=== PATIENT | female | born 1945 | race Caucasian/White ===

== ENCOUNTER → 2017-10-05 | Outpatient (CLI) | payer MEDICARE ==
--- NOTE | 2017-10-05 12:46 | KCIC ---
CT head without intravenous contrast History: Fall 3 weeks ago, dizziness, vertigo, unsteady gait. Comparison: None. Technique: Axial images are obtained of the head from the skull base through the vertex without IV contrast. Exposure: One or more of the following individualized dose reduction techniques were utilized for this examination: 1. Automated exposure control 2. Adjustment of the mA and/or kV according to patient size 3. Use of iterative reconstruction technique Findings: The ventricles are appropriate in size, shape, and location for the patient's age. No obvious intracranial mass, mass-effect, midline shift, hemorrhage or obvious acute infarction is identified. Basilar cisterns are patent. Bone windows demonstrate no acute calvarial abnormality. The visualized paranasal sinuses appear clear. Impression: 1. No acute intracranial process. Electronically signed by: Walt Villela MD (10/05/2017 12:43 PM) [facility]
--- NOTE | 2017-10-05 13:17 | KCIC ---
CT cervical spine History: Fall 3 weeks ago, dizziness, vertigo, unsteady gait. Comparison: None. Technique: Noncontrast CT of the cervical spine was performed using helical technique. Axial, sagittal, coronal reconstructions were obtained. Exposure: One or more of the following individualized dose reduction techniques were utilized for this examination: 1. Automated exposure control 2. Adjustment of the mA and/or kV according to patient size 3. Use of iterative reconstruction technique Findings: There is no evidence of acute fracture or acute malalignment involving the cervical spine. No prevertebral soft tissue swelling is identified. C3-4 level demonstrates right greater than left facet and uncovertebral hypertrophy. There is also 2 mm of anterolisthesis at this level. C4-5 level demonstrates left greater than right facet and uncovertebral hypertrophy. There is a central posterior disc protrusion. C5-6 level demonstrates degenerative disc disease with posterior disc osteophyte complex as well as narrowing and irregularity of the disc space. Bilateral facet hypertrophy is seen. There is mild bilateral neural foraminal narrowing. There is at least mild spinal canal narrowing. C6-7 level demonstrates degenerative disc disease with posterior disc osteophyte complex as well as narrowing and irregularity of the disc space. Bilateral facet hypertrophy is seen. There is mild bilateral neural foraminal narrowing. There is at least mild spinal canal narrowing. Impression: 1. No evidence of acute traumatic injury involving the cervical spine. 2. Multilevel degeneration. Electronically signed by: Walt Villela MD (10/05/2017 1:14 PM) [id number]
== END | disposition home or self-care (01) ==
LOC: KCIC CT 10:48
PROVIDERS: ATTEND Nurse Practitioner Occupational Health
DX: M50.322 Other cervical disc degeneration at C5-C6 level (principal); M50.323 Other cervical disc degeneration at C6-C7 level; R42 Dizziness and giddiness
CPT/HCPCS: 70450; 72125

== ENCOUNTER → 2018-02-21 | Outpatient (CLI) | payer MEDICARE ==
[2018-02-21 15:21] LABS: ADD MAN DIFF? NO
[2018-02-21 15:56] LABS: BASO # 0.1 x10^3/uL (0.0-0.2); BASO % 2 % (0-3); EOS # 0.1 x10^3/uL (0.0-0.7); EOS % 2 % (0-3); HEMATOCRIT 37.3 % (36.0-47.0); HEMOGLOBIN 12.5 g/dL (12.0-15.5); LYMPH # 2.5 x10^3/uL (1.0-4.8); LYMPH % 43 % (24-48); MEAN CORPUSCULAR HEMOGLOBIN 30 pg (25-35); MEAN CORPUSCULAR HGB CONC 34 g/dL (31-37); MEAN CORPUSCULAR VOLUME 90 fL (79-100); MONO # 0.7 x10^3/uL (0.0-1.1); MONO % 13 % (0-9); NEUT # 2.3 x10^3uL (1.8-7.7); NEUT % 40 % (31-73); PLATELET COUNT 463 x10^3/uL (140-400); RED BLOOD COUNT 4.15 x10^6/uL (3.50-5.40); RED CELL DISTRIBUTION WIDTH 14.5 % (11.5-14.5); WHITE BLOOD COUNT 5.8 x10^3/uL (4.0-11.0)
[2018-02-21 16:06] LABS: ALBUMIN 3.5 g/dL (3.4-5.0); ALBUMIN/GLOBULIN RATIO 0.8 (1.0-1.7); ALK PHOS 301 U/L (46-116); ALT (SGPT) 20 U/L (14-59); ANION GAP 7 (6-14); AST (SGOT) 22 U/L (15-37); BLOOD UREA NITROGEN 19 mg/dL (7-20); BUN/CREATININE RATIO 21 (6-20); CALCIUM 8.8 mg/dL (8.5-10.1); CARBON DIOXIDE 30 mmol/L (21-32); CHLORIDE 105 mmol/L (98-107); CREATININE 0.9 mg/dL (0.6-1.0); GFR 61.4; GLUCOSE 120 mg/dL (70-99); POTASSIUM 4.2 mmol/L (3.5-5.1); SODIUM 142 mmol/L (136-145); TOTAL BILIRUBIN 0.5 mg/dL (0.2-1.0)
[2018-02-21 16:19] LABS: THYROID STIM HORMONE (TSH) 0.756 uIU/mL (0.358-3.74)
[2018-02-21 16:38] LABS: FREE T4 1.28 ng/dL (0.76-1.46)
[2018-02-21 17:43] LABS: VITAMIN-B12 469 pg/mL (247-911)
[2018-02-23 17:18] LABS: ARSENIC UR None Detected ug/L (0-50); CADMIUM UR 1.4 ug/L (None detected); CADMIUM/CREAT 0.6 ug/g creat (0.0-1.9); LEAD UR 1 ug/L (0-49); LEAD/CREAT 0 ug/g creat (0-49); MERCURY UR None Detected ug/L (0-19)
== END | disposition home or self-care (01) ==
LOC: LAB 15:06
DX: R41.3 Other amnesia (principal); E55.9 Vitamin D deficiency, unspecified
CPT/HCPCS: 36415; 80053; 82306; 82607; 84439; 84443; 85025

== ENCOUNTER → 2018-03-03 | Outpatient (CLI) | payer MEDICARE | END | disposition home or self-care (01) | LOC: RT 08:55 | DX: R41.3 Other amnesia (principal) | CPT/HCPCS: 95816 ==

== ENCOUNTER → 2018-05-08 | Outpatient (CLI) | payer MEDICARE ==
[2018-05-08 15:07] LABS: GFR 54.3
== END | disposition home or self-care (01) ==
LOC: LAB 14:02
DX: E55.9 Vitamin D deficiency, unspecified (principal)
CPT/HCPCS: 36415; 82306; 82565